=== PATIENT | male | born 1975 | race African-American/Black ===

== ENCOUNTER 2017-12-28 13:00 | Outpatient (RCR) | payer BC ==
[~2017-12-28 13:00] MED LIST: CIPRO500 MG PO; DOXYCYCLINE 10100 MG PO; INDOMETHACIN PO; NO HOME MEDICATIONS; ZOFRAN 4MG T4 MG/TAB PO
== END 2018-02-12 | disposition home or self-care (01) ==
LOC: MKS.ESL.PT
DX: S43.004D Unspecified dislocation of right shoulder joint, subsequent encounter (principal)